=== PATIENT | female | born 1950 | race Two or more races ===

== ENCOUNTER 2019-03-24 09:14 | Emergency (ER) | payer OTHER ==
[~2019-03-24] VITALS: Ht 154.9 cm; Wt 70.3 kg
[2019-03-24] MEDS ORDERED: SYNTHROID100 MCG (10:15)
[2019-03-24] MEDS ORDERED: NEURONTIN PO (10:15)
[2019-03-24] MEDS ORDERED: NORFLEX100MG PO (12:28)
[2019-03-24] MEDS ORDERED: NAPROXEN500 MG PO (12:28)
== END 2019-03-24 12:44 | disposition home or self-care (01) ==
LOC: ER 09:14
DX: M62.838 Other muscle spasm (principal); M43.6 Torticollis